=== PATIENT | male | born 1985 | race Caucasian/White ===

== ENCOUNTER 2019-02-03 13:11 | Emergency (ER) | payer SELFPAY ==
[~2019-02-03] VITALS: Ht 167.6 cm; Wt 81.0 kg
[2019-02-03 13:20] VITALS: BP 127/84
[2019-02-03] MEDS: ACETAMINOPHEN 325MG TABLET PO ONE (13:49)
== END 2019-02-03 13:48 | disposition left against medical advice (07) ==
LOC: ER 13:11
DX: F10.129 Alcohol abuse with intoxication, unspecified (principal); Y90.0 Blood alcohol level of less than 20 mg/100 ml; R51 Headache
CPT/HCPCS: 99283